=== PATIENT | male | born 1930 | race Caucasian/White ===

== ENCOUNTER 2017-03-17 03:44 | Inpatient (IN) ==
--- NOTE | 2017-03-17 04:44 | Emergency Department Note ---
IRobbie Brittany, am scribing for, and in the presence of, Giselle Calero DO 04:32. IAbdias Debra, DO, personally performed the services described in this documentation, ascribed by Shanta Avalos in my presence, and it is both accurate and complete 442 . Arrival - Arrival Chief Complaint: Non-Specific ED Nursing Triage Note: C/O Abnormal lab work at previous facility- Pt was sent for further evaluation. Pt originally went to [facility] for Altered mental status, but family reports when he arrived at hospital he was at baseline mental status. Pt denies any complaints. Pt has dementia and disoriented to person, but not to time or place. Mode of Arrival: Stretcher Limitations: No Limitations Source: Patient, RN Notes Reviewed Time Seen by Provider: 03/17/17 03:50 - History of Present Illness HPI Narrative: Patient is a 86 y/o white male presenting to the ED by EMS from [facility] for further evaluation of Elevated INR of 9.9. Patient initially presented to [facility] for Altered Mental Status, but family reports that upon his arrival to facility patient was back to his baseline mental status. Patient at this time does not have any complaints. Patient does have a history of Dementia and in room is mildly confused secondary to this. From long-term notes patient was on Coumadin, but this medication has been held since . No other complaint/pain. Onset (ago): hour(s) Consistency: constant Allergies/Adverse Reactions: Allergies Allergy/AdvReac Type Severity Reaction Status Date / Time No Known Allergies Allergy Verified 03/17/17 03:53 Home Medications: Home Medications Medication Instructions Recorded Confirmed Type Allopurinol 300 mg PO DAILY 03/17/17 03/17/17 History Carvedilol [Coreg] 6.25 mg PO BID 03/17/17 03/17/17 History Digoxin Tab [Lanoxin Tab] 0.125 mg PO DAILY@1300 03/17/17 03/17/17 History Divalproex [Depakote] 500 mg PO BID 03/17/17 03/17/17 History Donepezil [Aricept] 10 mg PO BEDTIME 03/17/17 03/17/17 History Furosemide Tab [Lasix Tab] 40 mg PO DAILY 03/17/17 03/17/17 History Levothyroxine Tab [Synthroid Tab] 50 mcg PO DAILY@0700 03/17/17 03/17/17 History Lisinopril 5 mg PO DAILY 03/17/17 03/17/17 History Memantine HCl [Namenda XR] 28 mg PO DAILY 03/17/17 03/17/17 History Pravastatin [Pravachol] 20 mg PO BEDTIME 03/17/17 03/17/17 History Theophylline ER Tab 300 mg PO BID W/MEALS 03/17/17 03/17/17 History dilTIAZem HCl [Diltiazem HCl] 120 mg PO DAILY 03/17/17 03/17/17 History Review of System - Review of System ROS unobtainable: due to dementia Medical,Surgical,& Family Hx - Medical History Cardio: History of: Cardiac Dysrhythmia, Hypertension Neurology: History of: Dementia Endocrine: History of: Dyslipidemia - Social History Smoking Status: Unknown if ever smoked Frequency of Alcohol Use: None Type of Drug Use: None Exam Vital Signs: Vital Signs Temperature 97.6 F 03/17/17 03:44 Pulse Rate 106 H 03/17/17 03:44 Respiratory Rate 20 03/17/17 04:33 Blood Pressure 113/62 03/17/17 03:44 O2 Sat by Pulse Oximetry 90 L 03/17/17 03:44 - General General appearance: alert, in no apparent distress, other (ill appearing white male) - Head Head exam: Present: atraumatic, normocephalic, normal inspection - Eye Eye exam: Present: normal appearance, PERRL, EOMI - ENT ENT exam: Present: normal exam, normal oropharynx - Neck Neck exam: Present: normal inspection, full ROM, trachea midline - Chest Chest inspection: Present: normal inspection, symmetric chest wall rise - Respiratory Respiratory exam: Present: normal lung sounds bilaterally - Cardiovascular Cardiovascular exam: Present: tachycardia, irregular rhythm, normal heart sounds. Absent: regular rate, normal rhythm - Abdominal Exam Abdominal exam: Present: soft, normal bowel sounds - Extremities Exam Extremities exam: Present: normal inspection - Back Exam Back exam: Present: normal inspection - Neurological Exam Neurological exam: Present: alert, CN II-XII intact. Absent: oriented X3 ( patient is confused secondary to his Dementia), motor sensory deficit - Psychiatric Psychiatric exam: Present: normal affect, normal mood - Skin Skin exam: Present: warm, dry, intact, normal color Course Course Narrative: spoke with hospitalist who agreed on admission. awaiting new test results. Results - Labs Lab Results: I have reviewed the patients labs Labs: Laboratory Tests 03/17/17 04:39 INR 11.8 H* PT Patient/Control Mix 146.2 Circ Anticoag PTT 67.6 H Disposition Clinical Impression: Elevated INR Case discussed with: patient, patient's family Disposition: Still a Patient Condition: Stable Time of Disposition: 04:43
[2017-03-17 05:08] LABS: Partial Thromboplastin Time 67.6 SECS (0-40)
[2017-03-17 05:11] LABS: INR 11.8; PT Patient Result 146.2 SECS
[2017-03-17] MEDS ORDERED: PHYTONADIONE 10 MG/1 ML AMP IV STA (05:13)
[2017-03-17] MEDS ORDERED: PHYTONADIONE 10 MG/1 ML AMP ONE (05:42)
--- NOTE | 2017-03-17 06:21 | Hospitalist History & Physical ---
Assessment and Plan (1) Warfarin-induced coagulopathy Status: Acute Assessment and plan: Discontinue warfarin. 10 mg IV vitamin K, trend INR every 12 hours until significantly declining. Defer decision as to whether or not warfarin should be continued after this resolves as he is certainly a high risk candidate for the drug Gentle hydration with IVF's No gross bleeding Current Visit: Yes (2) Dementia Status: Acute Assessment and plan: Continue Namenda and Aricept Patient is at his baseline oriented only to person and does not contribute to his own history Currently without behavioral disturbance Current Visit: Yes (3) Gout Status: Acute Assessment and plan: Continue allopurinol Current Visit: Yes (4) Atrial fibrillation Status: Acute Assessment and plan: Continue home Coreg, digoxin, diltiazem Check dig level as he was already toxic on another medication Pacemaker in place Rate controlled at the time of my exam Given the warfarin induced coagulopathy needs a reassessment of risk versus benefits of anticoagulation Current Visit: Yes (5) Asthma Status: Acute Assessment and plan: Not currently in exacerbation, continue theophylline, check levels as he was toxic already on another medication Current Visit: Yes (6) Hypothyroidism Status: Acute Assessment and plan: Continue home levothyroxine Current Visit: Yes (7) Hypertension Status: Acute Assessment and plan: Continue lisinopril, Coreg, diltiazem Current Visit: Yes (8) Hypokalemia Status: Acute Assessment and plan: Replace p.o. Current Visit: Yes History of Present Illness Chief complaint: Elevated INR History of present illness: Mr. Underwood is a 86 year old male with past medical history of dementia, asthma , gout, atrial fibrillation, hypothyroidism that presented with a chief complaint of elevated INR. Due to his dementia Mr. Barahona is not able to give his own history. Onset abrupt. Duration 1 day. No associated symptoms. No aggravating or relieving factors as of yet. Patient was originally sent from [facility] to an outside hospital for evaluation of altered mental status and elevated INR. CT head there was negative. Family arrived and shop foreman the patient to be at his baseline mental status. He was transferred to [place] for higher level of care. Initial INR was 10 and has increased to 11.8 without treatment. Otherwise the patient and is in his usual state of health and has no complaints other than chronic upset stomach. There has been no gross blood loss. I have reviewed the workup performed in the emergency department including lab and imaging data. I discussed his case with emergency department providers. I have reviewed documentation from the sn[facility] that states that Mr. Barahona is DNR. Home Medications Medication Instructions Recorded Confirmed Type Allopurinol 300 mg PO DAILY 03/17/17 03/17/17 History Carvedilol [Coreg] 6.25 mg PO BID 03/17/17 03/17/17 History Digoxin Tab [Lanoxin Tab] 0.125 mg PO DAILY@1300 03/17/17 03/17/17 History Divalproex [Depakote] 500 mg PO BID 03/17/17 03/17/17 History Donepezil [Aricept] 10 mg PO BEDTIME 03/17/17 03/17/17 History Furosemide Tab [Lasix Tab] 40 mg PO DAILY 03/17/17 03/17/17 History Levothyroxine Tab [Synthroid Tab] 50 mcg PO DAILY@0700 03/17/17 03/17/17 History Lisinopril 5 mg PO DAILY 03/17/17 03/17/17 History Memantine HCl [Namenda XR] 28 mg PO DAILY 03/17/17 03/17/17 History Pravastatin [Pravachol] 20 mg PO BEDTIME 03/17/17 03/17/17 History Theophylline ER Tab 300 mg PO BID W/MEALS 03/17/17 03/17/17 History dilTIAZem HCl [Diltiazem HCl] 120 mg PO DAILY 03/17/17 03/17/17 History Allergies Allergy/AdvReac Type Severity Reaction Status Date / Time No Known Allergies Allergy Verified 03/17/17 03:53 Medical,Surgical,& Family Hx - Medical History Cardio: History of: Cardiac Dysrhythmia, Hypertension Neurology: History of: Dementia Endocrine: History of: Dyslipidemia - Surgical History Additional Surgical History: Cardiac pacemaker - Family History Family History: Reports;: Family Diabetes, Family Hypertension - Social History Smoking Status: Unknown if ever smoked Have you smoked in the last 12 months: No Frequency of Alcohol Use: None Type of Drug Use: None Lives With:: [facility] facility ROS unobtainable: due to dementia Exam - Constitutional Vitals: Period Temp Pulse Resp BP Sys/Bills Pulse Ox Last 24 Hr 97.6 F-97.6 F 90-106 16-20 113-113/62-62 90 General appearance: over weight, other (Elderly white male lying on stretcher pleasantly demented) Exam: - Eye Eye exam: Present: EOMI. Absent: conjunctival injection, scleral icterus Pupils: Present: UMANG - ENT ENT exam: Present: normal external ear exam, normal oropharynx - Expanded ENT Exam Mouth exam: Present: moist - Neck Neck exam: Present: normal inspection. Absent: lymphadenopathy, thyromegaly - Respiratory Respiratory exam: Present: clear to auscultation bilaterally. Absent: accessory muscle use, rales, rhonchi, wheezes - Cardiovascular Cardiovascular exam: Present: Borderline tachycardia and irregular rhythm. Absent: diastolic murmur, systolic murmur - Expanded Cardiovascular Exam Peripheral pulses: 2+: posterior tibialis (L), posterior tibialis (R) - GI/Abdominal GI/Abdominal exam: Present: normal bowel sounds, soft. Absent: distended, hyperactive bowel sounds, hypoactive bowel sounds, organomegaly, tenderness, rebound - Extremities Exam Extremities exam: Absent: edema - Neurological Exam Neurological exam: Present: alert, oriented only to person, CN II-XII intact. Absent: motor sensory deficit - Psychiatric Psychiatric exam: Present: normal affect - Skin Skin exam: Present: warm, dry. Absent: diaphoretic, rash Results - EKG EKG results: normal axis EKG shows: atrial fibrillation - Diagnostic Findings Procedure: CT: report reviewed by me
[2017-03-17] MEDS ORDERED: ACETAMINOPHEN 325 MG TABLET PO PRN (07:57)
[2017-03-17] MEDS ORDERED: DEXTROSE 5% NACL 0.45% 1,000 ML IV SCH (07:57)
[2017-03-17] MEDS ORDERED: THEOPHYLLINE ER 300 MG TABLET PO SCH (08:00)
[2017-03-17] MEDS: DIVALPROEX 500 MG TABLET PO SCH ×2 (11:09→20:37)
[2017-03-17] MEDS: FUROSEMIDE 40 MG TABLET PO SCH (11:10)
[2017-03-17] MEDS: LISINOPRIL 5 MG TABLET PO SCH (11:10)
[2017-03-17] MEDS: DILTIAZEM CD 120 MG CAPSULE PO SCH (11:10)
[2017-03-17] MEDS: POTASSIUM CHLORIDE 20 MEQ TABLET PO SCH (11:10)
[2017-03-17] MEDS: CARVEDILOL 6.25 MG TABLET PO SCH ×2 (11:10→20:37)
[2017-03-17] MEDS: ALLOPURINOL 300 MG TABLET PO SCH (11:10)
[2017-03-17] MEDS: MEMANTINE 10 MG TABLET PO SCH ×2 (11:10→20:38)
[2017-03-17] MEDS: LEVOTHYROXINE 50 MCG TABLET PO SCH (11:11)
[2017-03-17] MEDS: ONDANSETRON 4 MG/2 ML VIAL IV PRN ×2 (13:38→22:03)
[2017-03-17] MEDS: DIGOXIN 0.125 MG TABLET PO SCH (17:12)
[2017-03-17] MEDS: DONEPEZIL 10 MG TABLET PO SCH (20:37)
[2017-03-17] MEDS: PRAVASTATIN 20 MG TABLET PO SCH (20:37)
[2017-03-18 04:25] LABS: Basophils % 0.6 % (0.0-0.8); Eosinophils # 0.2 10*3/uL (0.0-0.87); Eosinophils % 3.5 % (0.00-10.9); Hematocrit 39.3 VOL% (42.0-52.0); Hemoglobin 13.6 GM/DL (14.0-18.0); Immature Granulocytes % 0.4 %; Immature Granulocytes Absolute 0.02 #; Lymphocytes # 1.6 10*3/uL (1.4-4.0); Lymphocytes % 31.3 % (21.2-54.2); Mean Corpuscular HGB Conc 34.6 GM/DL (32-36); Mean Corpuscular Hemoglobin 32 PG (27-34); Mean Corpuscular Volume 92.9 FL (87-102); Monocytes # 0.7 10*3/uL (0.11-0.8); Monocytes % 13.4 % (1.7-12.7); Neutrophils # 2.6 10*3/uL (1.4-7.4); Neutrophils % 50.8 % (38.7-73.9); Platelet Count 108 T/CUMM (130-400); Red Blood Count 4.23 MC/CUMM (3.8-5.5); Red Cell Distribution Width 16.6 % (9.3-17.3); White Blood Count 5.1 T/CUMM (4-12)
[2017-03-18 04:33] LABS: INR 1.3; PT Patient Result 14.3 SECS
[2017-03-18 04:54] LABS: Albumin 2.3 G/DL (3.4-5.0); Calcium 8.6 MG/DL (8.5-10.1); Osmolality,Calculated 271.8 MOS/KG (273-304); Phosphorous 2.4 MG/DL (2.5-4.9); Potassium 3.7 MMOL/L (3.5-5.1)
[2017-03-18] MEDS: FUROSEMIDE 40 MG TABLET PO SCH (09:12)
[2017-03-18] MEDS: ALLOPURINOL 300 MG TABLET PO SCH (09:12)
[2017-03-18] MEDS: LEVOTHYROXINE 50 MCG TABLET PO SCH (09:12)
[2017-03-18] MEDS: POTASSIUM CHLORIDE 20 MEQ TABLET PO SCH (09:13)
[2017-03-18] MEDS: MEMANTINE 10 MG TABLET PO SCH ×2 (09:13→21:50)
[2017-03-18] MEDS: CARVEDILOL 6.25 MG TABLET PO SCH ×2 (09:13→21:50)
[2017-03-18] MEDS: DILTIAZEM CD 120 MG CAPSULE PO SCH (09:13)
[2017-03-18] MEDS: LISINOPRIL 5 MG TABLET PO SCH (09:13)
[2017-03-18] MEDS: DIVALPROEX 500 MG TABLET PO SCH ×2 (09:13→21:50)
--- NOTE | 2017-03-18 13:31 | Hospitalist Progress Note ---
Hospitalist: Subjective Interval history: Pt having hematuria. No fever. No cp or SOB. +BM. Tolerating po. Exam - Constitutional Vitals: Period Temp Pulse Resp BP Sys/Bills Pulse Ox Last 24 Hr 97 F-97.9 F 67-105 18-20 91-119/54-74 96-98 Exam: A and O to person, hard of hearing RRR no M CTAB nonlabored Soft, NT, ND, +BS Warm no c/c/e Results - Labs CBC & BMP: 03/18/17 03:20 03/18/17 03:20 - Impressions (1) Warfarin-induced coagulopathy with hematuria Status: Acute Assessment and plan: Off warfarin. 10 mg IV vitamin K x 1, INR 1.3 now. Will hold anticoagulation for now but probably would be a better candidate for Eliquis at discharge if anticoagulation needed. Gentle hydration with IVF's Consult urology Current Visit: Yes (2) Dementia Status: Acute Assessment and plan: Continue Namenda and Aricept Patient is at his baseline oriented only to person and does not contribute to his own history Currently without behavioral disturbance Current Visit: Yes (3) Gout Status: Acute Assessment and plan: Continue allopurinol Current Visit: Yes (4) Atrial fibrillation Status: Acute Assessment and plan: Continue home Coreg, digoxin, diltiazem Dig level not toxic Pacemaker in place Rate controlled at the time of my exam Given the warfarin induced coagulopathy needs a reassessment of risk versus benefits of anticoagulation. Probably would be a better candidate for Eliquis at discharge Current Visit: Yes (5) Asthma Status: Acute Assessment and plan: Not currently in exacerbation. Hold theophylline as level is toxic. Current Visit: Yes (6) Hypothyroidism Status: Acute Assessment and plan: Continue home levothyroxine Current Visit: Yes (7) Hypertension Status: Acute Assessment and plan: Continue lisinopril, Coreg, diltiazem Current Visit: Yes (8) Hypokalemia Status: Acute Assessment and plan: Replace p.o. Current Visit: Yes DVT prophylaxis- SCDs D/W nurse. I will be away for several days. One of my associates will follow in my absence. Quality Measures - VTE Contraindication to Pharmacological VTE Prophylaxis: Already on Theraputic Agent , No Prophylaxis Needed
[2017-03-18] MEDS: DIGOXIN 0.125 MG TABLET PO SCH (15:33)
--- NOTE | 2017-03-18 16:18 | Urology Progress Note ---
Urology - PN: Subj Interval history: Thanks fro calling Full consult dictated A: Gross hematuria 2' coumdain toxicity Advanced dementia Chronic incontinence P: Hematuria has resolved - not seen on rounds today OK to D/C Saima when clinically indicated To be thorough, he needs an outpt hematuria W/U - but advanced dementia may mitigate this need Please call if needed F/U with Manish Rizzo or [facility] Exam - Constitutional Vitals: Period Temp Pulse Resp BP Sys/Bills Pulse Ox Last 24 Hr 97 F-98.0 F 67-105 18-20 91-119/54-74 96-98 Results - Labs CBC & BMP: 03/18/17 03:20 03/18/17 03:20
[2017-03-18] MEDS: DONEPEZIL 10 MG TABLET PO SCH (21:49)
[2017-03-18] MEDS: PRAVASTATIN 20 MG TABLET PO SCH (21:50)
--- NOTE | 2017-03-19 01:59 | Consultation ---
REASON FOR CONSULTATION: Gross hematuria. Thank you for asking Urology Service to see Mr. Underwood. HISTORY OF PRESENT ILLNESS: Mr. Underwood is an 86-year-old male, who is a [facility]. I w as called by the nursing staff for a consultation on the patient secondary to gross hematuria. Mr. Aleksandr roberts was transferred from an outlying facility where he was diagnosed with Coumadin toxicity. His INR had reached above 10. With Vitamin K, the INR has trended down to 1 now. He has baseline incont inence and apparently does not have a Landaverde [facility], but apparently pr ior to transfer to this hospital when he was diagnosed with Coumadin toxicity, a Landaverde catheter was i nserted based on the fear that he would develop hematuria. Based on the nursing staff report since h e has been here and the INR has been corrected, there was absolutely no hematuria per Landaverde. Past medical, surgical, social, and family history reviewed and on the H and P. REVIEW OF SYSTEMS: Unable to be obtained. The patient is somnolent and did not arouse for questioni ng. PHYSICAL EXAMINATION GENERAL: A well-developed, well-nourished male, no acute distress. HEENT: Normocephalic, atraumatic. NECK: No JVD. CHEST: Equal expansion bilaterally. ABDOMEN: Soft, nontender, nondistended. SKIN: Warm and dry. NEURO: Nonfocal. EXAM: Shows a Landaverde catheter draining clear urine in the tubing. The urine in the bag is yellow in color, slightly dark, possibly from dehydration. IMPRESSION: 1. Transient gross hematuria, not seen by me. 2. Chronic incontinence. PLAN: 1. Okay to remove Landaverde catheter whenever indicated. 2. The patient has advanced dementia and I do not know if the hematuria workup would be indicated. My conservative feeling would be to observe whether or not he develops recurrent hematuria, and if he does then he could certainly have a workup. Alternatively, if the family would like him to have ful l workup, we could go ahead and initiate this, but certainly we can do this as an outpatient includin g cystoscopy as well as upper tract imaging. 3. I spoke to the nursing staff about the plans and they are in agreement. Hopefully, he can be dis charged soon now that his INR has normalized.
[2017-03-19] MEDS: LEVOTHYROXINE 50 MCG TABLET PO SCH (06:30)
[2017-03-19] MEDS: CARVEDILOL 6.25 MG TABLET PO SCH ×2 (09:35→21:02)
[2017-03-19] MEDS: FUROSEMIDE 40 MG TABLET PO SCH (09:35)
[2017-03-19] MEDS: MEMANTINE 10 MG TABLET PO SCH ×2 (09:35→21:03)
[2017-03-19] MEDS: POTASSIUM CHLORIDE 20 MEQ TABLET PO SCH (09:35)
[2017-03-19] MEDS: DIVALPROEX 500 MG TABLET PO SCH ×2 (09:35→21:02)
[2017-03-19] MEDS: LISINOPRIL 5 MG TABLET PO SCH (09:35)
[2017-03-19] MEDS: ALLOPURINOL 300 MG TABLET PO SCH (09:35)
[2017-03-19] MEDS: DILTIAZEM CD 120 MG CAPSULE PO SCH (09:36)
--- NOTE | 2017-03-19 12:11 | Hospitalist Progress Note ---
Assessment and Plan (1) Warfarin-induced coagulopathy Status: Acute Assessment and plan: resolved; INR was 11.8; now it is 1.3 s/p vitamin K. Hesitant to start NOAC given suspected non compliance; seen by urology for hematuria; f/u outpatient; will d/c stephens Current Visit: Yes (2) Dementia Status: Acute Assessment and plan: stable; on namenda; mood stabilizer with VPA Current Visit: Yes (3) Elevated INR Status: Acute Assessment and plan: resolved Current Visit: Yes (4) Atrial fibrillation Status: Acute Assessment and plan: rate controlled with verna blockers; will defer AC to PCM. Digoxin level is fine. Current Visit: Yes (5) Hypertension Status: Acute Current Visit: Yes (6) Asthma Status: Acute Assessment and plan: stable; theodul held becuase of toxicity Current Visit: Yes (7) Hypertension Status: Acute Assessment and plan: controlled; continue current regimen Current Visit: Yes Hospitalist: Subjective Interval history: Nursing reports no problems. Patient is sleeping most of the time but awakens to eat. He has a good appetite. Exam - Constitutional Vitals: Period Temp Pulse Resp BP Sys/Bills Pulse Ox Last 24 Hr 97.2 F-98.5 F 77-108 16-20 94-118/46-68 95-98 General appearance: no acute distress - Respiratory Respiratory exam: Present: clear to auscultation bilaterally - Cardiovascular Cardiovascular exam: Present: regular rate and rhythm - GI/Abdominal GI/Abdominal exam: Present: normal bowel sounds - Extremities Exam Extremities exam: Present: other (no c/c/e) Results - Labs CBC & BMP: 03/18/17 03:20 03/18/17 03:20 Quality Measures - VTE Contraindication to Pharmacological VTE Prophylaxis: Already on Theraputic Agent , No Prophylaxis Needed
[2017-03-19] MEDS: DIGOXIN 0.125 MG TABLET PO SCH (13:55)
[2017-03-19] MEDS: PRAVASTATIN 20 MG TABLET PO SCH (21:03)
[2017-03-19] MEDS: DONEPEZIL 10 MG TABLET PO SCH (21:03)
[2017-03-20 05:59] LABS: Basophils % 0.8 % (0.0-0.8); Eosinophils # 0.2 10*3/uL (0.0-0.87); Eosinophils % 4.2 % (0.00-10.9); Hematocrit 38.8 VOL% (42.0-52.0); Hemoglobin 13.3 GM/DL (14.0-18.0); Immature Granulocytes % 0.6 %; Immature Granulocytes Absolute 0.03 #; Lymphocytes # 1.7 10*3/uL (1.4-4.0); Lymphocytes % 35.9 % (21.2-54.2); Mean Corpuscular HGB Conc 34.3 GM/DL (32-36); Mean Corpuscular Hemoglobin 33 PG (27-34); Mean Corpuscular Volume 94.9 FL (87-102); Mean Platelet Volume 10.2 FL (9.6-12.0); Monocytes # 0.6 10*3/uL (0.11-0.8); Monocytes % 13.4 % (1.7-12.7); Neutrophils # 2.2 10*3/uL (1.4-7.4); Neutrophils % 45.1 % (38.7-73.9); Platelet Count 102 T/CUMM (130-400); Red Blood Count 4.09 MC/CUMM (3.8-5.5); White Blood Count 4.8 T/CUMM (4-12)
[2017-03-20 06:33] LABS: Calcium 8.7 MG/DL (8.5-10.1); Magnesium 2.1 MG/DL (1.8-2.4); Osmolality,Calculated 273.7 MOS/KG (273-304); Potassium 4.1 MMOL/L (3.5-5.1)
[2017-03-20] MEDS: FUROSEMIDE 40 MG TABLET PO SCH (08:40)
[2017-03-20] MEDS: ALLOPURINOL 300 MG TABLET PO SCH (08:40)
[2017-03-20] MEDS: DIVALPROEX 500 MG TABLET PO SCH ×2 (08:40→20:22)
[2017-03-20] MEDS: DILTIAZEM CD 120 MG CAPSULE PO SCH (08:40)
[2017-03-20] MEDS: LISINOPRIL 5 MG TABLET PO SCH (08:40)
[2017-03-20] MEDS: CARVEDILOL 6.25 MG TABLET PO SCH ×2 (08:40→20:23)
[2017-03-20] MEDS: MEMANTINE 10 MG TABLET PO SCH ×2 (08:40→20:23)
[2017-03-20] MEDS: LEVOTHYROXINE 50 MCG TABLET PO SCH (08:40)
--- NOTE | 2017-03-20 12:12 | Hospitalist Progress Note ---
Assessment and Plan (1) Warfarin-induced coagulopathy Status: Acute Assessment and plan: resolved; INR was 11.8; now it is 1.3 s/p vitamin K. Hesitant to start NOAC given suspected non compliance; seen by urology for hematuria; f/u outpatient; will d/c stephens Current Visit: Yes (2) Dementia Status: Acute Assessment and plan: stable; on namenda and aricept; mood stabilizer with VPA; f/u level Current Visit: Yes (3) Elevated INR Status: Acute Assessment and plan: resolved Current Visit: Yes (4) Atrial fibrillation Status: Acute Assessment and plan: in NSR; on verna blockers; will defer AC to PCM. Digoxin level is fine. Current Visit: Yes (5) Hypertension Status: Acute Current Visit: Yes (6) Asthma Status: Acute Assessment and plan: stable; theodur held becuase of toxicity Current Visit: Yes (7) Hypertension Status: Acute Assessment and plan: controlled; continue current regimen Current Visit: Yes Hospitalist: Subjective Interval history: Patient has no complaints. He is eating without any problems. Exam - Constitutional Vitals: Period Temp Pulse Resp BP Sys/Bills Pulse Ox Last 24 Hr 96.5 F-97.9 F 65-77 16-20 102-118/57-66 93-98 General appearance: no acute distress - Head Head exam: Present: normocephalic - Eye Eye exam: Present: EOMI Pupils: Present: UMANG - Respiratory Respiratory exam: Present: clear to auscultation bilaterally - Cardiovascular Cardiovascular exam: Present: regular rate and rhythm - GI/Abdominal GI/Abdominal exam: Present: normal bowel sounds Results - Labs CBC & BMP: 03/20/17 05:20 03/20/17 05:20 Quality Measures - VTE Contraindication to Pharmacological VTE Prophylaxis: Already on Theraputic Agent , No Prophylaxis Needed
[2017-03-20] MEDS: DIGOXIN 0.125 MG TABLET PO SCH (13:38)
[2017-03-20] MEDS: DONEPEZIL 10 MG TABLET PO SCH (20:22)
[2017-03-20] MEDS: PRAVASTATIN 20 MG TABLET PO SCH (20:22)
[2017-03-21 02:58] LABS: Basophils % 0.7 % (0.0-0.8); Eosinophils # 0.3 10*3/uL (0.0-0.87); Eosinophils % 4.6 % (0.00-10.9); Hematocrit 36.6 VOL% (42.0-52.0); Hemoglobin 12.7 GM/DL (14.0-18.0); Immature Granulocytes % 0.9 %; Immature Granulocytes Absolute 0.05 #; Lymphocytes # 1.6 10*3/uL (1.4-4.0); Mean Corpuscular HGB Conc 34.7 GM/DL (32-36); Mean Corpuscular Hemoglobin 33 PG (27-34); Mean Corpuscular Volume 94.1 FL (87-102); Mean Platelet Volume 9.6 FL (9.6-12.0); Monocytes # 0.8 10*3/uL (0.11-0.8); Monocytes % 15.2 % (1.7-12.7); Neutrophils # 2.7 10*3/uL (1.4-7.4); Neutrophils % 48.6 % (38.7-73.9); Platelet Count 101 T/CUMM (130-400); Red Blood Count 3.89 MC/CUMM (3.8-5.5); Red Cell Distribution Width 16.6 % (9.3-17.3); White Blood Count 5.5 T/CUMM (4-12)
[2017-03-21 03:04] LABS: INR 1.1; Partial Thromboplastin Time 31.5 SECS (0-40)
[2017-03-21 03:23] LABS: Calcium 8.4 MG/DL (8.5-10.1); Magnesium 2.1 MG/DL (1.8-2.4); Osmolality,Calculated 272.8 MOS/KG (273-304)
[2017-03-21] MEDS: LEVOTHYROXINE 50 MCG TABLET PO SCH (06:05)
--- NOTE | 2017-03-21 08:14 | Discharge Summary ---
<Gamaliel Husain - Last Filed: 03/21/17 07:54> Hospital Course - Hospital Course Hospital Course: This is a very pleasant 86-year-old male that presented to the ED at [facility] on March 17, 2017 as a lateral transfer from [facility] for evaluation of altered mental status. The patient has a very complex medical history significant for dementia, hypertension, hypothyroidism, hyperlipidemia, atrial fibrillation, asthma, and gouty arthritis. Patient has a surgical history of pacemaker placement. The patient was brought in by his family who reported that the patient had experienced an acute change in his mental status; however at the time of ED presentation at [facility] the patient's mental status had returned to baseline. The patient was assessed at the time of encounter at [facility]. Labs were obtained which reported a supratherapeutic INR which was noted at 9.9. Cardiac enzymes were obtained which reported a slightly elevated troponin at 0.30, potassium level was noted at 3.3, and creatinine was noted at 1.29. CT head reported no acute intracranial abnormality. The patient was subsequently transferred to [facility] for further evaluation and continuation of care. At the time of ED presentation, the patient was notably confused which is his baseline. He was unable to give any history. The family was present at bedside and reported that this was an abrupt onset. The patient usually resides in a long-term care facility and that they visit frequently. Labs were reobtained at the time of presentation; which showed a noted increase in his INR which was noted at 11.8. The family reported no overt bleeding or blood loss. Upon discussion with the family it was noted that the patient was a DNR. The patient was subsequently admitted to [facility] for continuation of care. It was suspected that the patient had developed Coumadin toxicity. All anticoagulation agents were held and the patient was given vitamin K. Shortly after admission, the patient developed hematuria and a urology consult was requested. The patient was gently rehydrated and a Landaverde catheter was inserted for accurate intake and output. The patient's INR gradually improved; and today his INR is noted at 1.1. He has experienced no significant overnight events. His vital signs remained stable. His Landaverde catheter was removed on March 19, 2017; and he is voiding without difficulty. Today, we feel that he is indeed appropriate for discharge back to [facility] for continuation of care. He is to follow-up with urology as directed. We started patient on Elliquis this am, we will observe him for another day and dc in am. Will check cbc in am and start him on Augmentin po today. Discharge Plan - Discharge Data Disposition: Disch/Xfer to [facility] - Discharge Medications New Amoxicillin/Clav Tab [Augmentin Tab] 875 mg PO BID #14 tablet risperiDONE TAB [RisperDAL TAB] 0.5 mg PO BEDTIME tablet Acetaminophen Tab [Tylenol Tab] 325 mg PO Q4H PRN tablet PRN Reason: fever, headache/body aches Apixaban [Eliquis] 2.5 mg PO BID tablet Continue Divalproex [Depakote] 500 mg PO BID Memantine HCl [Namenda XR] 28 mg PO DAILY Furosemide Tab [Lasix Tab] 40 mg PO DAILY Donepezil [Aricept] 10 mg PO BEDTIME Carvedilol [Coreg] 6.25 mg PO BID dilTIAZem HCl [Diltiazem HCl] 120 mg PO DAILY Pravastatin [Pravachol] 20 mg PO BEDTIME Levothyroxine Tab [Synthroid Tab] 50 mcg PO DAILY@0700 Digoxin Tab [Lanoxin Tab] 0.125 mg PO DAILY@1300 Lisinopril 5 mg PO DAILY Allopurinol 300 mg PO DAILY Discontinued Theophylline ER Tab 300 mg PO BID W/MEALS - Follow Up or Referral - Forms/Instructions Exam - Constitutional Vitals: Period Temp Pulse Resp BP Sys/Bills Pulse Ox Last 24 Hr 97.5 F-98.8 F 62-92 16-20 94-121/54-71 90-100 Discharge Results Labs on day of discharge: Labs from last 24 hours 03/21/17 03/21/17 03/21/17 02:23 02:23 02:23 WBC RBC Hgb Hct MCV MCH MCHC RDW Plt Count MPV Neut % (Auto) Lymph % (Auto) [place] % (Auto) Eos % (Auto) Baso % (Auto) Neut # (Auto) Lymph # (Auto) [place] # (Auto) Eos # (Auto) Baso # (Auto) Immature Gran % Nucleated RBC % Immature Gran # Nucleated RBCs # INR 1.1 PT Patient/Control Mix 12.0 Circ Anticoag PTT 31.5 D Sodium 137 Potassium 4.0 Chloride 100 Carbon Dioxide 29 Anion Gap 12.0 BUN 13 Creatinine 1.10 GFR Calculation 74 BUN/Creatinine Ratio 11.00 Glucose 99 Calculated Osmolality 272.8 L Calcium 8.4 L Magnesium 2.1 Valproic Acid 59.0 03/21/17 02:23 WBC 5.5 RBC 3.89 Hgb 12.7 L Hct 36.6 L MCV 94.1 MCH 33 MCHC 34.7 RDW 16.6 Plt Count 101 L MPV 9.6 Neut % (Auto) 48.6 Lymph % (Auto) 30.0 [place] % (Auto) 15.2 H Eos % (Auto) 4.6 Baso % (Auto) 0.7 Neut # (Auto) 2.7 Lymph # (Auto) 1.6 [place] # (Auto) 0.8 Eos # (Auto) 0.3 Baso # (Auto) 0.0 Immature Gran % 0.9 Nucleated RBC % 0.0 Immature Gran # 0.05 Nucleated RBCs # 0.00 INR PT Patient/Control Mix Circ Anticoag PTT Sodium Potassium Chloride Carbon Dioxide Anion Gap BUN Creatinine GFR Calculation BUN/Creatinine Ratio Glucose Calculated Osmolality Calcium Magnesium Valproic Acid DS: Provider Date of admission: 03/20/17 16:22 Primary care physician: . No PCP Attending physician on admission: Pieter Rizo MD Consults: 03/18/17 13:53 Consult to Physician [CONS] Routine Comment: hematuria. was on coumadin Consulting Provider: Consulting Provider Notified: No When should Consulting Provider be notified: Now Consult to Specialist Group: Urology Person Notified: aware Date Notified: 03/18/17 Time Notified: 14:00 Discharging clinician: Gamaliel Husain CNP <Maine Morelos - Last Filed: 03/21/17 14:08> Diagnosis - Discharge Diagnosis (1) Warfarin-induced coagulopathy Status: Acute (2) Dementia Status: Acute (3) Gout Status: Acute (4) Atrial fibrillation Status: Acute (5) Hypothyroidism Status: Acute (6) Hypertension Status: Acute (7) Cellulitis Status: Acute Discharge Plan - Discharge Data Condition at Discharge: Stable Discharge Diet: advance to your usual diet Activity: resume usual activities as tolerated - Forms/Instructions Additional Discharge Instructions: follow with PCP in 1week Exam - Constitutional General appearance: no acute distress - Head Head exam: Present: normal inspection - Eye Eye exam: Present: EOMI - Respiratory Respiratory exam: Present: clear to auscultation bilaterally - Cardiovascular Cardiovascular exam: Present: regular rate and rhythm - GI/Abdominal GI/Abdominal exam: Present: normal bowel sounds - Extremities Exam Extremities exam: Present: other (right wrist cellulitis)
[2017-03-21] MEDS: FUROSEMIDE 40 MG TABLET PO SCH (10:13)
[2017-03-21] MEDS: DILTIAZEM CD 120 MG CAPSULE PO SCH (10:13)
[2017-03-21] MEDS: DIVALPROEX 500 MG TABLET PO SCH ×2 (10:13→20:26)
[2017-03-21] MEDS: MEMANTINE 10 MG TABLET PO SCH ×2 (10:13→20:27)
[2017-03-21] MEDS: CARVEDILOL 6.25 MG TABLET PO SCH ×2 (10:13→20:27)
[2017-03-21] MEDS: ALLOPURINOL 300 MG TABLET PO SCH (10:13)
[2017-03-21] MEDS: LISINOPRIL 5 MG TABLET PO SCH (10:14)
--- NOTE | 2017-03-21 11:59 | Hospitalist Progress Note ---
<Gamaliel Husain - Last Filed: 03/21/17 11:57> Assessment and Plan (1) Atrial fibrillation Status: Acute Assessment and plan: Rate is controlled at the present time. Coumadin remains on hold secondary to toxicity. I too, am reluctant to restart his Coumadin due to probable issues with compliance. Today we will start Eliquis for anticoagulation purposes. We will monitor overnight and reassess for appropriateness for discharge in the a.m. Current Visit: Yes (2) Dementia Status: Acute Assessment and plan: The patient remains pleasantly confused. The patient's family reports that this is the patient's normal baseline. Current Visit: Yes (3) Elevated INR Status: Acute Assessment and plan: INR therapeutic at 1.1 today, down from 1.3 on yesterday, and 11.8 at the time of admission. We will start Eliquis for anticoagulation purposes. We will monitor and reassess for appropriateness for discharge in the a.m. Will recheck INR in a.m. Current Visit: Yes (4) Hypertension Status: Acute Assessment and plan: Blood pressures are stable. We will continue to monitor and continue regimen as previously ordered. Current Visit: Yes Hospitalist: Subjective Interval history: Patient seen and examined; chart reviewed. No significant overnight events per nursing staff. Discharge was previously scheduled for today, however discharge placed on hold. We will start Eliquis today, monitor, and reassess for discharge appropriateness in a.m. Exam - Constitutional Vitals: Period Temp Pulse Resp BP Sys/Bills Pulse Ox Last 24 Hr 97.5 F-98.5 F 62-83 16-20 94-121/54-70 90-100 General appearance: normal weight, no no acute distress, no mild distress - Head Head exam: Present: normal inspection, normocephalic, atraumatic - Eye Eye exam: Present: EOMI. Absent: conjunctival injection Pupils: Present: UMANG. Absent: normal accommodation - ENT ENT exam: Present: normal exam, normal external ear exam, normal oropharynx - Neck Neck exam: Present: normal inspection. Absent: lymphadenopathy, meningismus, tenderness, thyromegaly - Respiratory Respiratory exam: Present: clear to auscultation bilaterally. Absent: rales, rhonchi, stridor, wheezes - Cardiovascular Cardiovascular exam: Present: regular rate and rhythm. Absent: carotid bruit, diastolic murmur, gallop, JVD, rubs, systolic murmur - GI/Abdominal GI/Abdominal exam: Present: normal bowel sounds, soft - Extremities Exam Extremities exam: Present: normal inspection, normal capillary refill, full ROM. Absent: edema - Back Exam Back exam: Present: normal inspection - Neurological Exam Neurological exam: Present: alert, altered (Oriented to self only; unable to recite time, place, or situation.) - Psychiatric Psychiatric exam: Present: normal affect - Skin Skin exam: Present: normal color, warm, dry Results - Labs CBC & BMP: 03/21/17 02:23 03/21/17 02:23 Lab Results: I have reviewed the past 24 hour labs Quality Measures - VTE Contraindication to Pharmacological VTE Prophylaxis: Already on Theraputic Agent , No Prophylaxis Needed <Maine Morelos - Last Filed: 03/21/17 14:09> Assessment and Plan (1) Warfarin-induced coagulopathy Status: Acute Current Visit: Yes (2) Dementia Status: Acute Current Visit: Yes (3) Gout Status: Acute Current Visit: Yes (4) Atrial fibrillation Status: Acute Current Visit: Yes (5) Hypothyroidism Status: Acute Current Visit: Yes (6) Hypertension Status: Acute Current Visit: Yes (7) Cellulitis Status: Acute Current Visit: Yes Hospitalist: Subjective Interval history: Will follow cbc in am and dc back to the [facility] Exam - Constitutional Vitals: Period Temp Pulse Resp BP Sys/Bills Pulse Ox Last 24 Hr 97.5 F-98.8 F 62-92 16-20 94-121/54-71 90-100 Results - Labs CBC & BMP: 03/21/17 02:23 03/21/17 02:23
[2017-03-21] MEDS: DIGOXIN 0.125 MG TABLET PO SCH (13:55)
[2017-03-21] MEDS: AMOXICILLIN/CLAV 875 MG TABLET PO SCH (20:26)
[2017-03-21] MEDS: DONEPEZIL 10 MG TABLET PO SCH (20:26)
[2017-03-21] MEDS: PRAVASTATIN 20 MG TABLET PO SCH (20:27)
[2017-03-21] MEDS: APIXABAN 2.5 MG TABLET PO SCH (20:30)
[2017-03-21] MEDS ORDERED: risperiDONE 0.5 MG TABLET PO SCH (21:00)
[2017-03-22 05:27] LABS: Basophils % 0.7 % (0.0-0.8); Eosinophils # 0.2 10*3/uL (0.0-0.87); Eosinophils % 2.7 % (0.00-10.9); Hematocrit 36.6 VOL% (42.0-52.0); Hemoglobin 12.9 GM/DL (14.0-18.0); Immature Granulocytes % 0.5 %; Immature Granulocytes Absolute 0.03 #; Lymphocytes # 1.7 10*3/uL (1.4-4.0); Lymphocytes % 31.3 % (21.2-54.2); Mean Corpuscular HGB Conc 35.2 GM/DL (32-36); Mean Corpuscular Hemoglobin 33 PG (27-34); Mean Corpuscular Volume 94.1 FL (87-102); Mean Platelet Volume 9.5 FL (9.6-12.0); Monocytes # 0.8 10*3/uL (0.11-0.8); Monocytes % 14.7 % (1.7-12.7); Neutrophils # 2.7 10*3/uL (1.4-7.4); Neutrophils % 50.1 % (38.7-73.9); Platelet Count 101 T/CUMM (130-400); Red Blood Count 3.89 MC/CUMM (3.8-5.5); Red Cell Distribution Width 16.7 % (9.3-17.3); White Blood Count 5.5 T/CUMM (4-12)
[2017-03-22] MEDS: LEVOTHYROXINE 50 MCG TABLET PO SCH (06:04)
[2017-03-22] MEDS ORDERED: FUROSEMIDE 20 MG TABLET PO SCH (09:28)
[2017-03-22] MEDS ORDERED: risperiDONE 0.25 MG TABLET PO SCH (09:28)
--- NOTE | 2017-03-22 09:39 | Hospitalist Progress Note ---
<Gamaliel Husain - Last Filed: 03/22/17 09:31> Assessment and Plan (1) Atrial fibrillation Status: Acute Assessment and plan: Rate is controlled at the present time. Coumadin remains on hold secondary to toxicity. I too, am reluctant to restart his Coumadin due to probable issues with compliance. Today we will start Eliquis for anticoagulation purposes. We will monitor overnight and reassess for appropriateness for discharge in the a.m 03/22-continue Eliquis as previously ordered Current Visit: Yes (2) Dementia Status: Acute Assessment and plan: The patient remains pleasantly confused. The patient's family reports that this is the patient's normal baseline. 03/23-no significant overnight events reported. Current Visit: Yes (3) Elevated INR Status: Acute Assessment and plan: INR therapeutic at 1.1 today, down from 1.3 on yesterday, and 11.8 at the time of admission. We will start Eliquis for anticoagulation purposes. We will monitor and reassess for appropriateness for discharge in the a.m. Will recheck INR in a.m. Current Visit: Yes (4) Hypertension Status: Acute Assessment and plan: Blood pressures are stable. We will continue to monitor and continue regimen as previously ordered. 03/22-multiple episodes of decrease in blood pressure noted on last night. We will discontinue the lisinopril at this time and decrease the Lasix to 20 mg p.o. daily. Will reassess for appropriateness for discharge in a.m. Current Visit: Yes Hospitalist: Subjective Interval history: Patient seen and examined. Chart reviewed; multiple episodes of decreased blood pressure noted on last night. We will readjust medications and plan for discharge in a.m. Exam - Constitutional Vitals: Period Temp Pulse Resp BP Sys/Bills Pulse Ox Last 24 Hr 97.4 F-99.2 F 76-92 17-20 96-121/55-71 94-95 General appearance: normal weight, no acute distress - Head Head exam: Present: normal inspection, normocephalic - Eye Eye exam: Present: EOMI, conjunctival injection Pupils: Present: UMANG, normal accommodation - ENT ENT exam: Present: normal external ear exam, normal oropharynx - Neck Neck exam: Present: normal inspection. Absent: lymphadenopathy, meningismus, tenderness, thyromegaly - Respiratory Respiratory exam: Present: clear to auscultation bilaterally. Absent: rales, rhonchi, stridor, wheezes - Cardiovascular Cardiovascular exam: Present: regular rate and rhythm. Absent: bradycardia, carotid bruit - GI/Abdominal GI/Abdominal exam: Present: normal bowel sounds, soft - Extremities Exam Extremities exam: Present: normal inspection, normal capillary refill, full ROM , edema - Back Exam Back exam: Present: normal inspection - Neurological Exam Neurological exam: Present: alert, other (Oriented to self only; unable to recite time, place, or situation) - Psychiatric Psychiatric exam: Present: normal affect - Skin Skin exam: Present: normal color, warm, dry Results - Labs CBC & BMP: 03/22/17 04:29 03/21/17 02:23 Lab Results: I have reviewed the past 24 hour labs Quality Measures - VTE Contraindication to Pharmacological VTE Prophylaxis: Already on Theraputic Agent , No Prophylaxis Needed <Maine Morelos - Last Filed: 03/22/17 13:37> Assessment and Plan (1) Warfarin-induced coagulopathy Status: Acute Current Visit: Yes (2) Dementia Status: Acute Current Visit: Yes (3) Gout Status: Acute Current Visit: Yes (4) Atrial fibrillation Status: Acute Current Visit: Yes (5) Hypothyroidism Status: Acute Current Visit: Yes (6) Hypertension Status: Acute Current Visit: Yes (7) Cellulitis Status: Acute Current Visit: Yes Hospitalist: Subjective Interval history: We will also reduce Risperidone to 2.5mg qhs due to over sedation. Exam - Constitutional Vitals: Period Temp Pulse Resp BP Sys/Bills Pulse Ox Last 24 Hr 97.3 F-99.2 F 64-83 16-20 96-128/55-75 94-98 Results - Labs CBC & BMP: 03/22/17 04:29 03/21/17 02:23
[2017-03-22] MEDS: CARVEDILOL 6.25 MG TABLET PO SCH ×2 (09:53→21:53)
[2017-03-22] MEDS: DIVALPROEX 500 MG TABLET PO SCH ×2 (09:53→21:52)
[2017-03-22] MEDS: ALLOPURINOL 300 MG TABLET PO SCH (09:53)
[2017-03-22] MEDS: DILTIAZEM CD 120 MG CAPSULE PO SCH (09:53)
[2017-03-22] MEDS: APIXABAN 2.5 MG TABLET PO SCH ×2 (09:53→21:52)
[2017-03-22] MEDS: AMOXICILLIN/CLAV 875 MG TABLET PO SCH ×2 (09:54→21:52)
[2017-03-22] MEDS: MEMANTINE 10 MG TABLET PO SCH ×2 (09:54→21:52)
[2017-03-22] MEDS: FUROSEMIDE 40 MG TABLET PO SCH (09:58)
[2017-03-22] MEDS: LISINOPRIL 5 MG TABLET PO SCH (09:58)
[2017-03-22] MEDS: DIGOXIN 0.125 MG TABLET PO SCH (13:44)
[2017-03-22] MEDS: DONEPEZIL 10 MG TABLET PO SCH (21:52)
[2017-03-22] MEDS: PRAVASTATIN 20 MG TABLET PO SCH (21:52)
[2017-03-23] MEDS: LEVOTHYROXINE 50 MCG TABLET PO SCH (06:19)
[2017-03-23] MEDS: APIXABAN 2.5 MG TABLET PO SCH (10:43)
[2017-03-23] MEDS: DIVALPROEX 500 MG TABLET PO SCH (10:43)
[2017-03-23] MEDS: ALLOPURINOL 300 MG TABLET PO SCH (10:46)
[2017-03-23] MEDS: AMOXICILLIN/CLAV 875 MG TABLET PO SCH (10:46)
[2017-03-23] MEDS: CARVEDILOL 6.25 MG TABLET PO SCH (10:46)
[2017-03-23] MEDS: DILTIAZEM CD 120 MG CAPSULE PO SCH (10:47)
[2017-03-23] MEDS: MEMANTINE 10 MG TABLET PO SCH (10:51)
[2017-03-23 11:04] VITALS: BP 106/77
[2017-03-23] MEDS: DIGOXIN 0.125 MG TABLET PO SCH (12:42)
== END 2017-03-23 15:06 | DRG 813 ==
LOC: N.ED 03:44 → N.EDINP 03:44 → SUATTDRO 06:13 → N.EDINP 07:17 → N.5E 07:56 → SUATTDRO 03-20 16:22
PROVIDERS: ADMIT Student in an Organized Health Care Education/Training Program; ATTEND Internal Medicine